=== PATIENT | female | born 1980 | race African-American/Black ===

== ENCOUNTER 2017-08-31 19:16 | Emergency (ER) | payer OTHER | END 2017-08-31 20:52 | disposition left against medical advice (07) | LOC: ERS 19:16 | DX: Z53.21 Procedure and treatment not carried out due to patient leaving prior to being seen by health care provider (principal) ==

== ENCOUNTER 2018-04-09 17:54 | Emergency (ER) | payer OTHER | END 2018-04-09 19:27 | disposition home or self-care (01) | LOC: ERS 17:54 | DX: H60.92 Unspecified otitis externa, left ear (principal); B20 Human immunodeficiency virus [HIV] disease; F41.9 Anxiety disorder, unspecified | CPT/HCPCS: 99282 ==

== ENCOUNTER 2018-04-20 18:15 | Emergency (ER) | payer OTHER | END 2018-04-20 18:52 | disposition home or self-care (01) | LOC: ERS 18:15 | DX: H61.22 Impacted cerumen, left ear (principal); B20 Human immunodeficiency virus [HIV] disease; F41.9 Anxiety disorder, unspecified; F17.210 Nicotine dependence, cigarettes, uncomplicated | CPT/HCPCS: 99282 ==

== ENCOUNTER 2019-07-28 08:27 | Observation (INO) | payer MEDICARE, MEDICAID ==
[2019-07-28 09:06] LABS: #Eosinphils 0.2 thou/uL (0.0-0.7); #Lymphocytes 2.1 thou/uL (1.20-3.40); #Monocytes 1.1 thou/uL (0.11-0.59); #Neutrophils 9.6 thou/uL (1.40-6.50); %Basophils 0.3 % (0.0-1.0); %Eosinophils 1.4 % (0.0-10.0); %Lymphocytes 15.9 % (21.0-51.0); %Monocytes 8.5 % (0.0-10.0); Mean Corpuscular HGB CONC 33.4 g/dL (32.0-36.0); Mean Corpuscular Hemoglobin 33.8 pg (27.0-31.0); Platelet Count 470 thou/uL (130-400); RBC Distribution Width 11.3 % (11.5-14.5); Red Blood Cell (RBC) Count 3.54 mill/uL (4.20-5.40)
[2019-07-28 09:20] LABS: BHCG - Serum Negative (NEGATIVE); Pregs Control Background? CLEAR/WHITE (CLR/WHITE); Pregs Control Bar Appear? YES (CONTROL BAR)
[2019-07-28 09:29] LABS: ALT (SGPT) 22 U/L (8-55); AST (SGOT) 21 U/L (5-34); Albumin 4.3 g/dL (3.5-5.0); Alkaline Phosphatase 70 U/L (40-110); Anion Gap 15 mmol/L (10-20); BUN (Urea Nitrogen) 7 mg/dL (7.0-18.7); Bilirubin, Total 0.3 mg/dL (0.2-1.2); Calc. Creatinine Clearance 0 mL/min (70-130); Calcium 10.1 mg/dL (7.8-10.44); Carbon Dioxide 22 mmol/L (22-29); Chloride 106 mmol/L (98-107); Estimated GFR-MDRD Greater than 90; Glucose 83 mg/dL (70-105); Potassium 3.9 mmol/L (3.5-5.1); Protein, Total 9.3 g/dL (6.0-8.3); Sodium 139 mmol/L (136-145)
[2019-07-28 10:46] LABS: Bacteria/HPF None Seen HPF (None Seen); Bilirubin Negative (Negative); Blood, Urine 2+ (Negative); Clarity Turbid (Clear); Glucose, Urine (Dipstick) Normal (Negative); Leukocyte 75 Leu/uL (Negative); Nitrite Negative (Negative); Protein, Urine (Dipstick) 50 mg/dL (Neg-Trace); RBC/HPF 21-50 HPF (0-3); Squamous Epithelial 0-3 HPF (0-3); Urobilinogen Normal mg/dL (Less than 2)
--- NOTE | 2019-07-28 11:23 | CT ---
CT ABDOMEN WITH CONTRAST CT PELVIS WITH CONTRAST: DATE: 07/28/2019 HISTORY: 38-year-old female with vaginal bleeding and lower abdominal/pelvic pain. Diarrhea, nausea, and emesi s. COMPARISON: none TECHNIQUE: IV injection of iodinated contrast media: administered. Oral contrast media:Not administered FINDINGS: There is diffuse fat stranding representing edema throughout the entire pelvic cavity. There is a complex right adnexal mass containing complex multi septated central cystic central lesion measuring approximately 3.5 x 1.5 x 4 cm, surrounded by thick edematous soft tissues. This may represent a complex (possibly hemorrhagic) right ovarian cyst. There is mural edema throughout the entire colon consistent with colitis. The appendix is 7 to 8 mm i n caliber and appears to have mural edema, but this is probably part of the same process causing the colitis. No definite discrete focal abscess is identified. Abdominal aorta, bilateral kidneys, pancreas, adrenals, and spleen, are normal. Hepatic attenuation is diffusely low, possibly representing fatty liver. No solid or cystic hepatic l esion. No portal vein thrombosis. Cholecystectomy clips. Lung bases are clear. No small bowel dilation or pneumoperitoneum. There are multiple periaortic mildly enlarged retroperitoneal lymph nodes. IMPRESSION: 1) diffuse edema throughout the entire pelvic cavity. This is nonspecific, but one possibility is PID (pelvic inflammatory disease). 2) pancolitis 3) mild to moderate retroperitoneal lymphadenopathy. 4) possible hepatic steatosis.
[2019-07-28] MEDS ORDERED: Ondansetron PF 4 MG/2 ML Vial ONE (11:53)
[2019-07-28] MEDS ORDERED: Morphine 4 MG/ML VIAL ONE (11:53)
[2019-07-28] MEDS ORDERED: Clindamycin/D5W 900 mg/50 ml Premix Bag ONE (12:11)
[2019-07-28] MEDS ORDERED: GENTAMICIN SULFATE IVPB SCH (12:30)
[2019-07-28] MEDS ORDERED: SODIUM CHLORIDE 0.9% IVPB SCH (12:30)
--- NOTE | 2019-07-28 12:41 | ULT ---
TRANSABDOMINAL AND ENDOVAGINAL PELVIC ULTRASOUND: HISTORY: Pelvic pain. COMPARISON: None. TECHNIQUE: Transabdominal and endovaginal imaging of the pelvis is performed. Ovaries are interrogated with gonzales scale, color flow, Doppler imaging and spectral wave form analysis. FINDINGS: Uterus: No myometrial masses. Uterus measurin.3 x 4.6 x 5.0 cm. Endometrium: Poorly defined. Endometrium diameter: Cannot be assessed due to poor definition. Free fluid: None. Right ovary: There is a central hypoechoic focus measuring 1.9 x 2.4 x 1.9 cm. There is heterogeneous echotexture along the periphery. Right ovary measurement: 6.5 x 4.4 x 6.9 cm. Left ovary: Normal echotexture. Left ovary measurements: 1.6 x 3.0 x 2.9 cm. Ovarian Doppler: There is vascular flow to both ovaries. Note, there is significant vascularity along the peripheral h eterogeneous component of the right ovary. The central hypoechoic focus has absent vascularity. IMPRESSION: 1. Presumed complex, possibly hemorrhagic right ovarian cyst. Follow-up ultrasound in 6-8 weeks. 2. Suboptimal evaluation of the endometrium. Transcribed Date/Time: 07/28/2019 12:51 PM
--- NOTE | 2019-07-28 15:29 | PDOC.FPRHP ---
- History of Present Illness Chief Complaint: Vaginal Bleeding History of Present Illness: Mrs. Nuno is a 38 y/o female with a PMH significant for HIV and Genital Warts who presents to the ED for a 1-2 week history of vaginal bleeding. She states that her periods are sporadic and that this bleeding is not like her periods, when they do occur. She states that the bleeding is usually worse in the morning, is free of visible clots, and is usually controlled with 4-6 pads and/or tampons. She states that over the past several days she has only had to use 1-2 tampons per day, however. She is unsure if she is . She admits occasional N/V and a foul smelling odor for the past 1- 2 weeks, but denies any new vaginal lesions, vulvar itching, vaginal discharge, dysuria, hematuria, syncopal episodes, fevers, chills or diarrhea. ED Course: While in the ED, Mrs. Nuno received a 1L bolus of NS, Gentamycin and Clindamycin. Her pain was controlled with Morphine. Speculum Exam: Minimal blood in the vaginal vault. Bimanual Exam: Mild cervical motion tenderness. CT ABD: Diffuse edema throughout abdomen. colitis with a right ovarian mass measuring 3.5 x 1.5 x 4 cm - colitis vs. PID. TVUS: Heterogeneous right ovarian mass measuring 1.9 x 2.4 x 1.9 cm - presumed complex cyst with recommend follow-up in 6-8 weeks - Allergies/Adverse Reactions Allergies Allergy/AdvReac Type Severity Reaction Status Date / Time tetracycline Allergy Verified 04/26/16 17:45 - Home Medications Medication Instructions Recorded Confirmed Type traMADol HCl [Tramadol HCl] 1 tab PO Q4HR PRN 04/26/16 04/26/16 History - History PMHx: HIV, Genital Warts PSHx: Cholecystectomy, Right Foot Fx Repair (Unknown) FHx: Non-contributory Social: EtOH: < 2 per week - Tobacco: "Social" - Drugs: Never Code Status: Full - Review of Systems General: denies: fever/chills, fatigue Eyes: denies: vision changes ENT: denies: nasal congestion, rhinorrhea Respiratory: reports: cough. denies: shortness of breath Cardiovascular: denies: chest pain, edema Gastrointestinal: reports: nausea Genitourinary: reports: other (See HPI) Skin: reports: lesions (Genital Warts) Musculoskeletal: denies: pain, tenderness Neurological: denies: syncope, seizure, weakness - Vital signs BP: [124/88] HR: [89] RR: [16] Tmax: [99.1] Pox: [97]% on [Room] Wt: [82 kg] - Physical Exam Constitutional: NAD, awake, alert and oriented, well developed HEENT: normocephalic and atraumatic, PERRLA, EOMI, conjunctiva clear, no scleral icterus, grossly normal vision, grossly normal hearing, normal nasal mucosa, MMM, oropharynx clear Neck: supple, FROM, trachea midline, no LAD Chest: no-tender to palpation, no lesions Heart: RRR, normal S1/S2, no murmurs/rubs/gallops, pulses present, no edema Lungs: CTAB, no respiratory distress, good air movement, no rales/rhonchi, no wheezing, no retractions Abdomen: soft, non-tender, bowel sounds present, no masses/distention, no hernias, other (Patient localized the pain to her suprapubic region.) Musculoskeletal: normal structure, ROM grossly normal Neurological: no focal deficit Skin: no rash/lesions, no jaundice Heme/Lymphatic: no unusual bruising or bleeding, no purpura Psychiatric: normal mood and affect FMR H&P: Results - Labs Result Diagrams: 07/28/19 08:50 07/28/19 08:50 Lab results: WBC 13.0 thou/uL (4.8-10.8) H 07/28/19 08:50 Hgb 12.0 g/dL (12.0-16.0) 07/28/19 08:50 Hct 35.9 % (36.0-47.0) L 07/28/19 08:50 MCV 101.0 fL (78.0-98.0) H 07/28/19 08:50 Plt Count 470 thou/uL (130-400) H 07/28/19 08:50 Neutrophils % 74.0 % (42.0-75.0) 07/28/19 08:50 Sodium 139 mmol/L (136-145) 07/28/19 08:50 Potassium 3.9 mmol/L (3.5-5.1) 07/28/19 08:50 Chloride 106 mmol/L (98-107) 07/28/19 08:50 Carbon Dioxide 22 mmol/L (22-29) 07/28/19 08:50 BUN 7 mg/dL (7.0-18.7) 07/28/19 08:50 Creatinine 0.82 mg/dL (0.6-1.1) 07/28/19 08:50 Glucose 83 mg/dL (70-105) 07/28/19 08:50 Calcium 10.1 mg/dL (7.8-10.44) 07/28/19 08:50 Total Bilirubin 0.3 mg/dL (0.2-1.2) 07/28/19 08:50 AST 21 U/L (5-34) 07/28/19 08:50 ALT 22 U/L (8-55) 07/28/19 08:50 Alkaline Phosphatase 70 U/L (40-110) 07/28/19 08:50 Serum Total Protein 9.3 g/dL (6.0-8.3) H 07/28/19 08:50 Albumin 4.3 g/dL (3.5-5.0) 07/28/19 08:50 Urine Ketones Negative mg/dL (Negative) 07/28/19 10:27 Urine Blood 2+ (Negative) A 07/28/19 10:27 Urine Nitrite Negative (Negative) 07/28/19 10:27 Ur Leukocyte Esterase 75 Christi/uL (Negative) A 07/28/19 10:27 Urine RBC 21-50 HPF (0-3) A 07/28/19 10:27 Urine WBC 11-20 HPF (0-3) A 07/28/19 10:27 Ur Squamous Epith Cells 0-3 HPF (0-3) 07/28/19 10:27 Urine Bacteria None Seen HPF (None Seen) 07/28/19 10:27 - Radiology Interpretation CT scan - abdomen Status: report reviewed by me CT scan - pelvis Status: report reviewed by me Other Status: report reviewed by me (TVUS) FMR H&P: A/P - Plan 1. Abnormal Uterine Bleeding -Physiologic Bleeding vs. Hemorrhagic Cyst vs. Pelvic Inflammatory Disease -Physical exam unremarkable -WBCs: 13 -Patient appears hemodynamically stable - H / Hct: 35.9 -bHCG: Negative -VP3: Pending -GC: Pending / Chlamydia: Pending -UA: +WBCs - No bacteria, nitrites, or LEs -CT ABD/Pelvis: Diffuse edema and colitis with right ovarian mass - hemorrhagic cyst vs. functional cyst and colitis -TVUS: Right ovarian mass -s/p Gentamycin and Clindamycin 2. HIV -Continue home Biktarvy regimen 3. Genital Warts -No treatment indicated at this time Code Status: Full Diet: Heart Healthy Activity: Ad Hanh VTE PPx: SCDs Dispo: Admit patient to the [facility] Floor for observation. Ensure hemodynamic stablility and await results of GC / Chlamydia swab and correlate clinically. No additional imaging indicated at this time. Expected LOS < 24H FMR H&P: Upper Level - Plan Date/Time: 07/28/19 1525 Rico Singh DO, have evaluated this patient and agree with findings/plan as outlined by financial intern resident. Pertinent changes/additions are listed here. This is a 38 yo with a pmh of HIV and genital warts who is being seen by Dr. Hartman for her HIV presents to the ER with a cc of lower abdominal pain, vaginal bleeding. She states that the pain is in her lower abdomen with some right sided radiation. In addition, she states she has been having heavy bleeding, soaking 7 tampons in a day. She states the bleeding is improving at this point some and is beginning to darken. She reports irregular periods since she had her last child. She also reports she is currently homeless, living with her daughter. She denies current drug use but endorses occasional alcohol and tobacco use. Objective VSS Cardio: RRR, no murmur Resp: CTAB, no adventitious sounds Abdomen: BS+, tenderness to the right lower quadrant, no rebound Please see financial intern note for further information. A/P Abnormal uterine bleeding -Admit to medical obs -Hemodynamically stable, H/H stable -Possible hemorrhagic cyst resulting in bleeding -DDX includes perimenopausal. Ovarian torsion r/u based on ultrasound -Monitor pt overnight and likely discharge in the AM, plan for follow up with PCP and LEACHER -Negative VP3 -Pending GC/chlamydia, holding abx for now but will continue if needed HIV -Pt follows with Dr. Hartman but is unsure of her CD4 count -Likely not contributing to the above Mild leukocytosis -Pt is afebrile with no acute abdomen, likely 2/2 ruptured cyst Addendum - Attending - Attending Attestation Date/Time: 07/28/192022 I personally evaluated the patient and discussed the management with Dr. Chauhan I agree with the History, Examination, Assessment and Plan documented above with any addition or exceptions noted below - This is a 38 yo with a pmh of HIV and genital warts who is being seen by Dr. Hartman for her HIV presents to the ER with a c/o lower abdominal pain and vaginal bleeding. She states that the pain is in her lower abdomen midline and with some right sided radiation. In addition, she states she has been having heavy bleeding, soaking 7 tampons in a day. She states the bleeding is improving at this point some and is beginning to darken. She reports irregular periods since she had her last child. States that this bleeding is unlike her typical menses. Denies any fever/ chills. Occ night sweats. Denies any diarrhea. Did have 1 episode of N/V in ER but attributes this to the pain. States that she typically does not have jpain or clots with her menses and this episode is atypical. Denies any vaginal discharge prior to the bleeding. PMH/PSH/ROS/SH reviewed and agree with resident 's documentation;. Afebrile VSS. Exam repeated by me and agree with resident's documentation except- (+) suprapubic tenderness and mild RLQ tenderness; no rebound or guarding. Bimanual exam (+) CMT; (+) uterine and right adnexal tenderness. CT with fat stranding throughout pelvic cavity. Also evidence of mural edema throughout colon c/w colitis. TV USG- right complex possibly hemorrhagic cyst. A/P Abd pain- possibly secondary to cyst versus PID; will continue abx for now and monitor response. Toradol for pain. GC/CT pending.
[2019-07-28] MEDS ORDERED: Iopamidol-370 76% 500 ML 1 ML ONE (16:24)
[2019-07-28] MEDS ORDERED: Ondansetron ODT 4 MG TAB PO PRN (20:11)
[2019-07-28] MEDS ORDERED: Acetaminophen 325 MG TAB PO PRN (20:11)
[2019-07-28] MEDS ORDERED: Zolpidem Tartrate 5 MG TAB PO PRN (20:14)
[2019-07-28] MEDS ORDERED: Clindamycin/D5W 900 MG in Premix Bag 1 BAG IVPB SCH (20:30)
[2019-07-28] MEDS ORDERED: Sodium Chloride 0.9% 10 ML ONE (21:10)
[2019-07-28] MEDS: Ketorolac Tromethamine 30 MG/ML VIAL IVP PRN (21:13)
[2019-07-28] MEDS ORDERED: Sodium Chloride 0.9% 1,000 ML IV SCH (22:00)
[2019-07-28 22:57] VITALS: BMI 27.4
[2019-07-29] MEDS ORDERED: Clindamycin/D5W 900 MG in Premix Bag 1 BAG IVPB SCH (04:00)
--- NOTE | 2019-07-29 04:37 | PDOC.FM ---
- Subjective Subjective: She says she is feeling better this morning. She said pain was suprapubic and 10 /10 when she came in and now is currently 3/10. Did not get much sleep overnight due to people coming in. Last BM was yesterday. She is hungry this morning. - Objective MAR Reviewed: Yes Vital Signs & Weight: Vital Signs (12 hours) Temp Pulse Resp BP Pulse Ox 07/29/19 00:09 98.2 F 77 18 93/59 L 07/28/19 19:50 97.7 F 82 20 115/76 100 Weight Weight 81.65 kg I&O: 07/27/19 07/28/19 07/29/19 06:59 06:59 06:59 Intake Total 101 Balance 101 Result Diagrams: 07/29/19 04:24 07/29/19 04:24 Phys Exam - Physical Examination Constitutional: NAD HEENT: PERRLA, moist MMs, sclera anicteric Neck: full ROM Respiratory: clear to auscultation bilateral Cardiovascular: RRR, no significant murmur, no rub Gastrointestinal: soft, no distention hypoactive bowel sounds, TTP over suprapubic area Musculoskeletal: no edema, pulses present Neurological: moves all 4 limbs Psychiatric: normal affect Skin: no rash, normal turgor, cap refill <2 seconds Dx/Plan (1) Abnormal uterine bleeding Code(s): N93.9 - ABNORMAL UTERINE AND VAGINAL BLEEDING, UNSPECIFIED Status: Acute (2) HIV (human immunodeficiency virus infection) Code(s): B20 - HUMAN IMMUNODEFICIENCY VIRUS [HIV] DISEASE Status: Acute (3) Leukocytosis Code(s): D72.829 - ELEVATED WHITE BLOOD CELL COUNT, UNSPECIFIED Status: Acute (4) Genital warts Code(s): A63.0 - ANOGENITAL (VENEREAL) WARTS Status: Acute - Plan Plan: Mrs. Nuno is a 38 y/o AA female with a PMH significant for HIV and Genital Warts who presents to the ED for a 1-2 week history of vaginal bleeding. 1. Abnormal Uterine Bleeding * Physiologic Bleeding vs. Hemorrhagic Cyst vs. Pelvic Inflammatory Disease * WBCs: 13 > 7.0 * Patient is hemodynamically stable - H / Hct: 35.9 * bHCG: Negative * VP3: Negative * GC / Chlamydia: Pending * UA: +WBCs - No bacteria, nitrites, or LEs * CT ABD/Pelvis: Diffuse edema and pancolitis with right ovarian mass - hemorrhagic cyst vs. functional cyst and colitis * TVUS: Right ovarian mass, f/u in 6-8 wks * Received Gentamycin and Clindamycin 2. HIV * Continue home Biktarvy regimen * Pt follows with Dr. Hartman but is unsure of her CD4 count 3. Genital Warts * No treatment indicated at this time 4.Mild leukocytosis- Resolved * Pt is afebrile with no acute abdomen, likely 2/2 ruptured cyst Code Status: Full Diet: HH Activity: Ad Hanh VTE PPx: SCDs Dispo: Admit patient to the Patient Attendant Floor for observation. Await results of GC / Chlamydia swab. Expected LOS < 24H. Plan for follow up with PCP and ONLINE ACTIVIST Addendum - Attending - Attending Attestation Date/Time: 07/29/19 [id number] I personally evaluated the patient and discussed the management with Dr. Najma Akers I agree with the History, Examination, Assessment and Plan documented above with any addition or exceptions noted below - Patient feeling better this morning. States that pain has decreased. 11/19 this morning. Hungry. No N/V/D. Afebrile. VSS. A/P: 1) Possible PID- pain improved; cotninue IV abx for now and recheck late this afternoon. If continues to be doing well, will change to po abx and d/c home for outpatient follow-up.
[2019-07-29 04:55] LABS: Anion Gap 12 mmol/L (10-20); Carbon Dioxide 24 mmol/L (22-29); Chloride 106 mmol/L (98-107); Potassium 4.2 mmol/L (3.5-5.1); Sodium 138 mmol/L (136-145)
[2019-07-29 04:56] LABS: ALT (SGPT) 16 U/L (8-55); AST (SGOT) 14 U/L (5-34); Albumin 3.4 g/dL (3.5-5.0); Alkaline Phosphatase 57 U/L (40-110); BUN (Urea Nitrogen) 10 mg/dL (7.0-18.7); Bilirubin, Total 0.3 mg/dL (0.2-1.2); Calc. Creatinine Clearance 112 mL/min (70-130); Calcium 8.9 mg/dL (7.8-10.44); Estimated GFR-MDRD 86; Globulin 4.1 g/dL (2.4-3.5); Glucose 92 mg/dL (70-105); Protein, Total 7.5 g/dL (6.0-8.3)
[2019-07-29] MEDS: Clindamycin/D5W 900 MG in Premix Bag 1 BAG IVPB SCH ×2 (05:05→13:10)
[2019-07-29 05:58] LABS: Band 5 % (5-11); Hemoglobin 10.1 g/dL (12.0-16.0); Hypochromia SLIGHT = 6-15 cells (100X) (0-5/hpf); Lymphocytes 14 % (21-51); MDiff Complete? YES; Macrocytosis SLIGHT = 6-15 cells (100X) (0-5/hpf); Mean Corpuscular HGB CONC 33.6 g/dL (32.0-36.0); Mean Platelet Volume 6.6 fL (7.4-10.4); Metamyelocyte 1 % (0-0); Monocytes 7 % (0-10); Neutrophil 70 % (42-75); Platelet Count 378 thou/uL (130-400); Platelet Morphology Comment Appears Adequate; RBC Distribution Width 11.3 % (11.5-14.5); Reactive Lymphocytes 3 % (0-10); Red Blood Cell (RBC) Count 2.96 mill/uL (4.20-5.40)
[2019-07-29] MEDS: Ketorolac Tromethamine 30 MG/ML VIAL IVP PRN ×2 (08:23→16:52)
[2019-07-29 11:51] VITALS: BP 112/80; TEMP 98.5
[2019-07-29] MEDS ORDERED: Prevnar 13-Val Conj/PF 0.5 ML SYRINGE IM ONE (21:00)
--- NOTE | 2019-07-30 10:34 | DIS ---
DATE OF ADMISSION: 07/28/2019 DATE OF DISCHARGE: 07/29/2019 RESIDENT: Tre Akers MD ADMITTING ATTENDING: Angela Morgan MD DISCHARGE ATTENDING: Angela Morgan MD CONSULTS: None. PROCEDURES 1. Abdominal and pelvis CT (07/28): shows diffuse edema throughout the entire pelvic cavity, nonspecific, but possibility is PID. a. Pancolitis. b. Tydy-pe-blndiucv retroperitoneal lymphadenopathy. c. Possibly hepatic steatosis. 2. Pelvic ultrasound (07/28): showed presumed complex possible hemorrhagic right ovarian cyst. Followup ultrasound in 6 to 8 weeks. PRIMARY DIAGNOSES 1. Abnormal uterine bleeding. 2. Human immunodeficiency virus. 3. Genital warts. 4. Mild leukocytosis. DISCHARGE MEDICATIONS 1. Azithromycin 250 mg p.o. daily for 7 days, except for 1st day 500 mg. 2. Clindamycin 450 mg p.o. q.6 hours for 14 days. Discontinued medications 1. Tylenol. 2. IV clindamycin. 3. IV gentamicin. 4. Toradol. 5. IV fluids. 6. Zofran. 7. Ambien. HISTORY OF PRESENT ILLNESS: Ms. Nuno is a 38-year-old female with past medical history significant for HIV and Genital warts, who presents to the ED for 1 to 2 weeks history of vaginal bleeding. She states her periods are sporadic and is not like her periods when they do occur. She states that the bleeding is usually worse in the morning. It is free of visible clots and she has only had to use 1 to 2 tampons per day. However, she is unsure she is , she admits to occasional nausea, vomiting, and a foul smelling odor for the past 1 to 2 weeks , but denies any new vaginal lesions, vulvar itching, vaginal discharge, dysuria, hematuria, syncopal episodes, fevers, chills, or diarrhea. In the ED, Ms. Nuno received 1 L bolus of normal saline, gentamicin, and clindamycin. Her pain was controlled with morphine. Spec exam showed minimal blood in the vaginal vault. Bimanual showed mild cervical motion tenderness. CT of abdomen and transvaginal ultrasound were performed and our results are noted above. 1. Abnormal uterine bleeding. * Physiologic bleeding versus hemorrhagic cyst versus PID. * White blood cell count was 13 on admission, but resolved to 7 before discharge. * The patient was hemodynamically stable with a hemoglobin of 12 and hematocrit of 35.9. * Beta-hCG was negative. * VP3 negative. * GC and chlamydia are pending. * UA was positive for white blood cells and leukocyte esterase, but negative for bacteria or any nitrites. * Urine culture was negative. * CT abdomen as noted above. * Received gentamicin and clindamycin. * Was discharged with azithromycin and clindamycin. 2. HIV. * Continue Biktarvy regimen. * Followed up by Dr. Hartman. Unsure of CD4 count. 3. Genital warts. * No treatment indicated at this time. 4. Mild leukocytosis, resolved. * The patient is afebrile with no acute abdomen likely secondary to ruptured cyst. DISPOSITION: Stable. DISCHARGE INSTRUCTIONS: 1. Location: Home. 2. Diet: Regular. 3. Activity: As tolerated. 4. Followup: Follow up with Dr. Ambrocio in 7 days of discharge. Job ID: [id number] [facility]
[2019-07-30 21:22] LABS: Chlamydia by PCR Not Detected (NotDetected); GC by PCR DETECTED (NotDetected)
== END 2019-07-29 17:25 | disposition home or self-care (01) ==
LOC: ERS 08:27 → 3SE 18:02
PROVIDERS: ADMIT Family Medicine; ATTEND Family Medicine
DX: N93.9 Abnormal uterine and vaginal bleeding, unspecified (principal); R10.30 Lower abdominal pain, unspecified; A63.0 Anogenital (venereal) warts; D72.829 Elevated white blood cell count, unspecified; K51.00 Ulcerative (chronic) pancolitis without complications; R59.0 Localized enlarged lymph nodes; Z79.899 Other long term (current) drug therapy; Z88.1 Allergy status to other antibiotic agents; Z21 Asymptomatic human immunodeficiency virus [HIV] infection status; Z59.0 Homelessness
CPT/HCPCS: 74177; 76830; 76856; 80053 ×2; 84703; 85007; 85025; 85027; 87086; 87480; 87491; 87510; 87591; 87660; 96365; 96366 ×2; 96367; 96375 ×2; 96376; 99285; G0378 ×3; 36415; 81003; 81015; J1580; J1885; J2270; J2405; J3490; Q9967

== ENCOUNTER 2019-09-14 14:19 | Outpatient (CLI) | payer MEDICARE, MEDICAID ==
--- NOTE | 2019-09-14 15:20 | ULT ---
TRANSABDOMINAL AND TRANSVAGINAL PELVIC ULTRASOUND: INDICATIONS: Follow up ovarian cyst. COMPARISON: 07/28/2019 FINDINGS: Torres-scale, color Doppler and spectral Doppler images were obtained via a transabdominal and transvag inal approach. The uterus measures 7.4 x 4.3 x 4.2 cm. The total uterine volume is 70.87 mL. The endometrial stripe is 2 mm. The right ovary measures 3.2 x 2.1 x 2.1 cm. The left ovary measures 2.5 x 1.2 x 1.5 cm. There is nor mal vascular flow to both ovaries. The previously seen complex cyst in the right ovary is reduced in size, now measuring 0.7 x 0.8 x 0.7 cm. Less complexity is seen within the cyst. No free fluid is identified. IMPRESSION: Resolving complex right ovarian hemorrhagic cyst. Residual small cyst remains within the central aspe ct of the right ovary, measuring up to 0.8 cm. Previously this complex cyst measured up to 2.4 cm. POS: OFF
== END 2019-09-14 14:20 | disposition home or self-care (01) ==
LOC: BICULT 14:19
PROVIDERS: ATTEND Family Medicine
DX: N83.201 Unspecified ovarian cyst, right side (principal)
CPT/HCPCS: 76856

== ENCOUNTER 2020-09-18 06:56 | Outpatient (CLI) | payer MEDICARE, MEDICAID ==
[2020-09-18 12:31] LABS: Mean Corpuscular Hemoglobin 33.4 PG (27.0-33.0); Mean Corpuscular Volume 101.3 fl (80.0-100.0); Mean Platelet Volume 10.5 fl (7.4-10.4); Platelet Count 217 10x3/uL (130-400); Red Blood Cell (RBC) Count 3.89 10x6/uL (3.90-5.20); White Blood Cell (WBC) Count 5.4 10x3/uL (4.5-11.0)
[2020-09-18 12:39] LABS: BHCG - Serum Negative (NEGATIVE); Pregs Control Background? CLEAR/WHITE (CLR/WHITE); Pregs Control Bar Appear? YES (CONTROL BAR)
[2020-09-18 12:47] LABS: Anion Gap 17 mmol/L (10-20); BUN (Urea Nitrogen) 7 mg/dL (7.0-18.7); Calc. Creatinine Clearance 0 mL/min (70-130); Calcium 9.4 mg/dL (7.8-10.44); Carbon Dioxide 21 mmol/L (22-29); Chloride 108 mmol/L (98-107); Glucose 77 mg/dL (70-105); Sodium 142 mmol/L (136-145)
[2020-09-18 21:58] LABS: SARS-CoV-2 MS2 Positive; SARS-CoV-2 N Gene Negative; SARS-CoV-2 S Gene Negative; SARS-CoV-2 by NAA Not Detected (NotDetected); SARS-CoV-2 orf1ab Negative
== END 2020-09-18 06:57 | disposition home or self-care (01) ==
LOC: LABBT 06:56
PROVIDERS: ATTEND Specialist
DX: Z01.812 Encounter for preprocedural laboratory examination (principal); Z20.822 Contact with and (suspected) exposure to COVID-19; A63.0 Anogenital (venereal) warts; Z21 Asymptomatic human immunodeficiency virus [HIV] infection status
CPT/HCPCS: 80048; 84703; 85027; U0003; 87635

== ENCOUNTER 2020-09-23 05:40 | Day surgery (SDC) | payer MEDICARE, MEDICAID ==
[2020-09-19 12:18] VITALS: BMI 29.3
[2020-09-23] MEDS ORDERED: Acetaminophen 500 MG TAB ONE (06:24)
[2020-09-23] MEDS ORDERED: Ketorolac Tromethamine 30 MG/ML VIAL ONE (06:24)
[2020-09-23] MEDS ORDERED: EPINEPHrine 1 MG/ML AMP ONE (06:38)
[2020-09-23] MEDS ORDERED: Bupivacaine 0.25% HCL 30 ML VIAL ONE (06:38)
[2020-09-23] MEDS ORDERED: Fentanyl 100 MCG/2 ML VIAL ONE (06:52)
[2020-09-23] MEDS ORDERED: Bacitracin Zinc Ointment 30 gm TUBE ONE (09:02)
[2020-09-23] MEDS ORDERED: PROPOFOL 200 MG/20 ML VIAL ONE (11:03)
[2020-09-23] MEDS ORDERED: Lidocaine 1% PF 5 ML VIAL ONE (11:03)
[2020-09-23] MEDS ORDERED: Ondansetron PF 4 MG/2 ML Vial ONE (11:03)
[2020-09-23] MEDS ORDERED: Dexamethasone 20 MG/5 ML VIAL ONE (11:03)
--- NOTE | 2020-09-23 19:42 | OP ---
DATE OF PROCEDURE: 09/23/2020 PREOPERATIVE DIAGNOSES: Perianal and vulvar extensive condyloma. POSTOPERATIVE DIAGNOSES: Perianal and vulvar extensive condyloma. OPERATION PERFORMED: Excision and electrodesiccation of extensive condylomatous disease of the bilateral vulva and circumferentially around the anus. ANESTHESIA: General endotracheal. INDICATIONS: The patient is a 39-year-old black female who is HIV positive. She presented with extensive condylomatous disease in her genital and perianal area. She was taken to the operating room at this time for surgical treatment of this. DESCRIPTION OF OPERATION: Informed consent was obtained. Patient taken to the operating where general anesthesia was obtained with patient in supine position. She was placed in dorsal lithotomy position. Perianal and genital area were prepped with Betadine, draped in sterile fashion. Local anesthetic was infiltrated using 0.25% Marcaine with epinephrine in all areas of where the disease was located. I then began a fairly lengthy and meticulous process of excising each area of the condyloma. All of the genital condyloma on bilateral vulva were excised individually. The perianal area was a confluent area of condyloma in a circumferential fashion. I felt this was too much to excise. I therefore excised 3 separate large patches of this and then electrodesiccated all of the condyloma between these areas. The Intoloop viral aspiration system was used throughout the operation to minimize aerosolized virus. All bleeding was controlled with electrocautery after various areas were excised. I then closed all of the defect to the extent possible with interrupted sutures of 3-0 chromic. I smeared bacitracin over each area and placed dry gauze and mesh pants. There were no complications. Blood loss was negligible. The patient tolerated the procedure well and was taken to the recovery room in stable condition. Job ID: [id number]
== END 2020-09-23 11:15 | disposition home or self-care (01) ==
LOC: SDC 05:40
PROVIDERS: ATTEND Specialist
PROC: 0H58XZZ Destruction of Buttock Skin, External Approach (ICD-10-PCS; principal; 2020-09-23)
DX: A63.0 Anogenital (venereal) warts (principal); Z79.899 Other long term (current) drug therapy; Z88.1 Allergy status to other antibiotic agents; Z21 Asymptomatic human immunodeficiency virus [HIV] infection status
CPT/HCPCS: 88305; J0171; J0690; J1100; J1885; J2405; J2704; J3010; S0020

== ENCOUNTER 2020-11-05 08:38 | Emergency (ER) | payer MEDICARE, MEDICAID | END 2020-11-05 10:00 | disposition home or self-care (01) | LOC: ERS 08:38 | DX: R03.0 Elevated blood-pressure reading, without diagnosis of hypertension (principal); I10 Essential (primary) hypertension; Z21 Asymptomatic human immunodeficiency virus [HIV] infection status; F17.210 Nicotine dependence, cigarettes, uncomplicated; Z79.899 Other long term (current) drug therapy | CPT/HCPCS: 99284 ==

== ENCOUNTER 2020-12-15 10:54 | Outpatient (CLI) | payer MEDICARE, MEDICAID ==
[2020-12-15 13:26] LABS: #Eosinphils 0.1 10x3/uL (0.0-0.5); #Monocytes 0.5 10x3/uL (0.0-1.1); #Neutrophils 2.3 10x3/uL (1.5-8.4); %Basophils 0.4 % (0.0-2.0); %Eosinophils 2.6 % (0.0-6.0); %Lymphocytes 35.8 % (18.0-47.0); %Monocytes 11.3 % (0.0-10.0); %Neutrophils 49.7 % (40.0-75.0); Hemoglobin 13.2 g/dL (12.0-15.5); Mean Corpuscular HGB CONC 32.8 g/dL (32.0-36.0); Mean Corpuscular Hemoglobin 33.7 pg (27.0-33.0); Mean Corpuscular Volume 102.6 fl (81.6-98.3); Mean Platelet Volume 10.4 fl (7.4-10.4); Platelet Count 167 10x3/uL (150-450); RBC Distribution Width 12.6 % (11.5-14.5); Red Blood Cell (RBC) Count 3.92 10x6/uL (3.90-5.03); White Blood Cell (WBC) Count 4.7 10x3/uL (3.5-10.5)
[2020-12-15 13:35] LABS: Anion Gap 14 mmol/L (10-20); BUN (Urea Nitrogen) 6 mg/dL (7.0-18.7); Calc. Creatinine Clearance 0 mL/min (70-130); Calcium 9.2 mg/dL (7.8-10.44); Carbon Dioxide 23 mmol/L (22-29); Chloride 105 mmol/L (98-107); Glucose 71 mg/dL (70-105); Potassium 3.9 mmol/L (3.5-5.1); Sodium 138 mmol/L (136-145)
[2020-12-15 13:41] LABS: BHCG - Serum Negative (NEGATIVE); Pregs Control Background? CLEAR/WHITE (CLR/WHITE); Pregs Control Bar Appear? YES (CONTROL BAR)
[2020-12-15 18:20] LABS: SARS-CoV-2 PCR by NAA Not Detected (NotDetected)
== END 2020-12-15 10:55 | disposition home or self-care (01) ==
LOC: LABBT 10:54
PROVIDERS: ATTEND Specialist
DX: Z01.812 Encounter for preprocedural laboratory examination (principal); Z20.822 Contact with and (suspected) exposure to COVID-19; A63.0 Anogenital (venereal) warts; Z21 Asymptomatic human immunodeficiency virus [HIV] infection status
CPT/HCPCS: 80048; 84703; 85025; U0003; U0005; 87635

== ENCOUNTER 2020-12-18 08:47 | Day surgery (SDC) | payer MEDICARE, MEDICAID ==
[2020-12-17 09:50] VITALS: BMI 29.2
[2020-12-18] MEDS ORDERED: Ketorolac Tromethamine 30 MG/ML VIAL ONE ×2 (09:39→10:46)
[2020-12-18] MEDS ORDERED: Acetaminophen 500 MG TAB ONE (09:40)
[2020-12-18] MEDS ORDERED: Midazolam HCl 2 mg/2 ml Vial ONE (10:12)
[2020-12-18] MEDS ORDERED: Fentanyl 100 MCG/2 ML VIAL ONE (10:23)
[2020-12-18] MEDS ORDERED: Lidocaine 1% w/Epinephrine 1:100K 20 ML VIAL ONE (10:24)
[2020-12-18] MEDS ORDERED: Bupivacaine 0.25% HCL 30 ML VIAL ONE (10:24)
[2020-12-18] MEDS ORDERED: Lidocaine 2% Jelly 5 ML TUBE ONE (10:24)
[2020-12-18] MEDS ORDERED: Dexamethasone 20 MG/5 ML VIAL ONE (10:46)
[2020-12-18] MEDS ORDERED: Ondansetron PF 4 MG/2 ML Vial ONE (10:46)
[2020-12-18] MEDS ORDERED: PROPOFOL 200 MG/20 ML VIAL ONE (10:46)
[2020-12-18] MEDS ORDERED: Glycopyrrolate 0.2 MG/ML 5 ML SYRINGE ONE (10:46)
[2020-12-18] MEDS ORDERED: Lidocaine 1% PF 5 ML VIAL ONE (10:46)
[2020-12-18] MEDS ORDERED: Bacitracin Zinc Ointment 30 gm TUBE ONE (11:33)
[2020-12-18] MEDS ORDERED: Meperidine HCl/PF 25 MG/ML VIAL ONE (12:06)
== END 2020-12-18 13:00 | disposition home or self-care (01) ==
LOC: SDC 08:47
PROVIDERS: ATTEND Specialist
PROC: 0DBQXZX Excision of Anus, External Approach, Diagnostic (ICD-10-PCS; principal; 2020-12-18)
DX: A63.0 Anogenital (venereal) warts (principal); F17.200 Nicotine dependence, unspecified, uncomplicated; Z21 Asymptomatic human immunodeficiency virus [HIV] infection status; Z79.899 Other long term (current) drug therapy; Z88.1 Allergy status to other antibiotic agents
CPT/HCPCS: 88305; J0690; J1100; J1885; J2175; J2250; J2405; J2704; J3010; S0020

== ENCOUNTER 2021-12-17 10:38 | Outpatient (CLI) | payer MEDICARE, MEDICAID ==
[2021-12-17 12:36] LABS: #Basophils 0.1 10x3/uL (0.0-0.2); #Monocytes 0.3 10x3/uL (0.0-1.1); #Neutrophils 2.3 10x3/uL (1.5-8.4); %Basophils 1.4 % (0.0-2.0); %Lymphocytes 35.9 % (18.0-47.0); %Monocytes 6.5 % (0.0-10.0); %Neutrophils 54.7 % (40.0-75.0); Hemoglobin 12.2 g/dL (12.0-15.5); Mean Corpuscular HGB CONC 33.5 g/dL (32.0-36.0); Mean Corpuscular Hemoglobin 34.1 pg (27.0-33.0); Mean Corpuscular Volume 101.7 fl (81.6-98.3); Mean Platelet Volume 9.9 fl (7.4-10.4); Platelet Count 232 10x3/uL (150-450); RBC Distribution Width 12.4 % (11.5-14.5); Red Blood Cell (RBC) Count 3.58 10x6/uL (3.90-5.03); White Blood Cell (WBC) Count 4.2 10x3/uL (3.5-10.5)
[2021-12-17 13:20] LABS: Anion Gap 17 mmol/L (10-20); BUN (Urea Nitrogen) 6 mg/dL (7.0-18.7); Calc. Creatinine Clearance 0 mL/min (70-130); Calcium 9.2 mg/dL (7.8-10.44); Carbon Dioxide 24 mmol/L (22-29); Chloride 108 mmol/L (98-107); Glucose 80 mg/dL (70-105); Potassium 3.7 mmol/L (3.5-5.1); Sodium 145 mmol/L (136-145)
[2021-12-17 20:05] LABS: SARS-CoV-2 PCR by NAA Not Detected (NotDetected)
== END 2021-12-17 10:39 | disposition home or self-care (01) ==
LOC: LABBT 10:38
PROVIDERS: ATTEND Specialist
DX: Z01.818 Encounter for other preprocedural examination (principal); A63.0 Anogenital (venereal) warts; Z20.822 Contact with and (suspected) exposure to COVID-19
CPT/HCPCS: 80048; 85025; 93005; U0003; U0005; 93010

== ENCOUNTER 2022-10-25 08:58 | Emergency (ER) | payer MEDICARE, MEDICAID ==
[2022-10-25 10:15] LABS: SARS-CoV-2 NAA Rapid Test Not Detected (NotDetected)
== END 2022-10-25 10:16 | disposition home or self-care (01) ==
LOC: ERS 08:58
DX: J06.9 Acute upper respiratory infection, unspecified (principal); Z20.822 Contact with and (suspected) exposure to COVID-19
CPT/HCPCS: 0240U; 99283

== ENCOUNTER 2023-05-17 14:11 | Emergency (ER) | payer MEDICARE, MEDICAID ==
[2023-05-17 16:07] LABS: SARS-CoV-2 NAA Rapid Test DETECTED (NotDetected)
== END 2023-05-17 16:30 | disposition home or self-care (01) ==
LOC: ERS 14:11
DX: U07.1 COVID-19 (principal); B20 Human immunodeficiency virus [HIV] disease; I10 Essential (primary) hypertension; Z79.899 Other long term (current) drug therapy; F17.210 Nicotine dependence, cigarettes, uncomplicated
CPT/HCPCS: 0240U; 71045

== ENCOUNTER 2024-10-25 15:35 | Emergency (ER) | payer MEDICAID, MEDICARE ==
[2024-10-25 16:15] LABS: #Basophils 0.06 10x3/uL (0.0-0.2); %Basophils 1.1 % (0.0-1.0); %Eosinophils 2.8 % (0.0-10.0); %Lymphocytes 38.6 % (21.0-51.0); %Monocytes 9.5 % (0.0-10.0); %Neutrophils 47.8 % (42.0-75.0); Hematocrit 39.7 % (36.0-47.0); Hemoglobin 13.4 g/dL (12.0-16.0); Mean Corpuscular HGB CONC 33.8 g/dL (32.0-36.0); Mean Corpuscular Hemoglobin 34.4 pg (27.0-31.0); Mean Corpuscular Volume 101.8 fL (78.0-98.0); Mean Platelet Volume 9.5 fL (7.4-10.4); Platelet Count 267 10x3/uL (130-400); RBC Distribution Width 11.9 % (11.5-14.5)
[2024-10-25 16:40] LABS: ALT (SGPT) 19 U/L (Less than 34); AST (SGOT) 26 U/L (11-34); Albumin 4.2 g/dL (3.1-4.5); Alkaline Phosphatase 59 U/L (40-110); Anion Gap 15 mmol/L (10-20); BUN (Urea Nitrogen) 9 mg/dL (7.0-18.7); Bilirubin, Total 0.3 mg/dL (0.3-1.2); Calc. Creatinine Clearance 0 mL/min (70-130); Calcium 9.4 mg/dL (7.8-10.44); Carbon Dioxide 20 mmol/L (22-29); Chloride 108 mmol/L (98-107); Estimated GFR 77; Globulin 4.2 g/dL (2.4-3.5); Glucose 81 mg/dL (70-105); Potassium 3.7 mmol/L (3.5-5.1); Protein, Total 8.4 g/dL (6.0-8.3); Sodium 139 mmol/L (136-145)
[2024-10-25 16:44] LABS: Troponin I Less than 0.010 ng/mL (< 0.028)
== END 2024-10-25 16:56 | disposition home or self-care (01) ==
LOC: ERS 15:35
DX: I10 Essential (primary) hypertension (principal); R42 Dizziness and giddiness; F17.210 Nicotine dependence, cigarettes, uncomplicated; Z79.899 Other long term (current) drug therapy
CPT/HCPCS: 36415; 71045; 80053; 83880; 84484; 85025; 93005